=== PATIENT | female | born 1955 | race Caucasian/White ===

== ENCOUNTER 2020-01-19 10:46 | Emergency (ER) | payer SELFPAY ==
[~2020-01-19] VITALS: Ht 165.1 cm; Wt 71.2 kg
[2020-01-19] MEDS ORDERED: FLUT1DIS28 (11:21)
[2020-01-19 11:45] LABS: BASOPHILS % (AUTO) 0 % (0-10); EOSINOPHILS # (AUTO) 0.1 10^3/uL (0.0-0.3); EOSINOPHILS % (AUTO) 1 % (0-10); HEMATOCRIT 45 % (35-52); HEMOGLOBIN 15.4 G/DL (11.5-16.0); LYMPHOCYTES # (AUTO) 1.5 X 10^3 (1.0-4.0); LYMPHOCYTES % (AUTO) 18 % (12-44); MEAN CORPUSCULAR HEMOGLOBIN 30 PG (25-34); MEAN CORPUSCULAR HGB CONC 34 G/DL (32-36); MEAN CORPUSCULAR VOLUME 89 FL (80-99); MONOCYTES # (AUTO) 0.6 X 10^3 (0.0-1.0); MONOCYTES % (AUTO) 7 % (0-12); NEUTROPHILS # (AUTO) 6.1 X 10^3 (1.8-7.8); NEUTROPHILS % (AUTO) 74 % (42-75); PLATELET COUNT 277 10^3/uL (130-400); RED CELL DISTRIBUTION WIDTH 14.3 % (10.0-14.5); WHITE BLOOD COUNT 8.3 10^3/uL (4.3-11.0)
[2020-01-19 11:49] LABS: ALBUMIN 4.5 GM/DL (3.2-4.5); CHLORIDE 105 MMOL/L (98-107); POTASSIUM 3.8 MMOL/L (3.6-5.0); SODIUM 140 MMOL/L (135-145)
[2020-01-19 11:50] LABS: CALCIUM 9.5 MG/DL (8.5-10.1)
[2020-01-19 11:51] LABS: GLUCOSE 124 MG/DL (70-105); TOTAL PROTEIN 7.6 GM/DL (6.4-8.2)
[2020-01-19 11:52] LABS: CARBON DIOXIDE 23 MMOL/L (21-32)
[2020-01-19 11:53] LABS: BILIRUBIN,TOTAL 0.4 MG/DL (0.1-1.0)
[2020-01-19 11:55] LABS: ALKALINE PHOSPHATASE 60 U/L (40-136); CREATININE SERUM 1.01 MG/DL (0.60-1.30); GFR ESTIMATED 55
[2020-01-19 11:56] LABS: BUN/CREATININE RATIO 23
[2020-01-19 11:58] LABS: ALANINE AMINOTRANSFERASE 23 U/L (0-55)
--- NOTE | 2020-01-19 12:01 | ED General ---
General Chief Complaint: General Problems/Pain Stated Complaint: HIGH BP Nursing Triage Note: AMB TO ROOM REPORTS FOR PAST MONTH SHE HAS NOT FELT WELL. IN AM SHE GETS SHAKEY AND FEELING LIKE SHE CAN'T BREATH. TODAY SHE WAS AT WORK WHEN IN OCCURED WAS SENT TO [facility] IN [place] WHO SENT HER HERE. FOR DEVON. IS TO HAVE APPOINTENT WITH MICHAEL IN JANUARY. REPORTS FEELING BETTER ON ADMIT TO ED. DRANK COKE AND SYMPTOMS RESOLVED. Nursing Sepsis Screen: No Definite Risk Source of Information: Patient Exam Limitations: No Limitations History of Present Illness Date Seen by Provider: January 19, 2020 Time Seen by Provider: 11:15 Initial Comments 64-year-old female who presents to the emergency room with complaints of not feeling well for the past month. She has been seen and evaluated by her PCP for these issues. She states that she gets shaky and feels like she can't catch her breath. This has been going on for the past month but today at work her boss sent her to the [facility] clinic in [place] who then referred her to the emergency room for an evaluation. She has history of COPD and sees Dr. Carrasco for cardiology. She denies chest pain, nausea vomiting, dizziness. She did report that when the incident happened today she drank a Coke and resolved the majority of her symptoms. Timing/Duration: Other (1 month) Associated Systoms: Denies Symptoms Allergies and Home Medications Allergies Coded Allergies: codeine (Verified Allergy, Unknown, 01/19/20) Patient Home Medication List Home Medication List Reviewed: Yes Review of Systems Review of Systems Constitutional: see HPI; No chills, No fever Respiratory: see HPI, short of breath Musculoskeletal: see HPI, muscle twitching All Other Systems Reviewed Negative Unless Noted: Yes Past Oxlbcbs-Otfyca-Qgqirv Hx Past Med/Social Hx: Reviewed Nursing Past Med/Soc Hx Patient Social History Alcohol Use: Occasionally Uses Recreational Drug Use: No Smoking Status: Current Everyday Smoker Recent Foreign Travel: No Contact w/Someone Who Travel: No Recent Infectious Disease Expo: No Past Medical History Surgeries: Yes Section Respiratory: Yes COPD Cardiac: No Neurological: No Genitourinary: No Gastrointestinal: No Musculoskeletal: No Endocrine: No HEENT: No Cancer: No Psychosocial: No Family Medical History Reviewed Nursing Family Hx Physical Exam Vital Signs Vital Signs - First Documented 01/19/20 10:52 Temp 36.5 Pulse 93 Resp 18 B/P (MAP) 157/62 (93) Pulse Ox 98 Capillary Refill : Less Than 3 Seconds Height, Weight, BMI Height: '" Weight: lbs. oz. kg; 26.00 BMI Method: General Appearance: No Apparent Distress, WD/WN HEENT: PERRL/EOMI, TMs Normal, Normal ENT Inspection, Pharynx Normal Respiratory: Chest Non Tender, Lungs Clear, Normal Breath Sounds, No Accessory Muscle Use, No Respiratory Distress Cardiovascular: Regular Rate, Rhythm, No Edema, No Gallop, No JVD, No Murmur, Normal Peripheral Pulses Gastrointestinal: Normal Bowel Sounds, No Organomegaly, No Pulsatile Mass, Non Tender, Soft Extremity: Normal Capillary Refill, Normal Inspection, Normal Range of Motion, Non Tender, No Calf Tenderness, No Pedal Edema Neurologic/Psychiatric: Alert, Oriented x3, Normal Mood/Affect Skin: Normal Color, Warm/Dry Progress/Results/Core Measures Suspected Sepsis Recent Fever Within 48 Hours: No Infection Criteria Present: None New/Unexplained Altered Menta: No Sepsis Screen: No Definite Risk SIRS Temperature: Pulse: 93 Respiratory Rate: 18 Laboratory Tests 01/19/20 11:32: White Blood Count 8.3 Blood Pressure 157 /62 Mean: 93 Laboratory Tests 01/19/20 11:32: Creatinine 1.01, Platelet Count 277, Total Bilirubin 0.4 Results/Orders Lab Results Laboratory Tests Test 01/19/20 11:32 Range/Units White Blood Count 8.3 4.3-11.0 10^3/uL Red Blood Count 5.08 4.35-5.85 10^6/uL Hemoglobin 15.4 11.5-16.0 G/DL Hematocrit 45 35-52 % Mean Corpuscular Volume 89 80-99 FL Mean Corpuscular Hemoglobin 30 25-34 PG Mean Corpuscular Hemoglobin Concent 34 32-36 G/DL Red Cell Distribution Width 14.3 10.0-14.5 % Platelet Count 277 130-400 10^3/uL Mean Platelet Volume 10.0 7.4-10.4 FL Neutrophils (%) (Auto) 74 42-75 % Lymphocytes (%) (Auto) 18 12-44 % Monocytes (%) (Auto) 7 0-12 % Eosinophils (%) (Auto) 1 0-10 % Basophils (%) (Auto) 0 0-10 % Neutrophils # (Auto) 6.1 1.8-7.8 X 10^3 Lymphocytes # (Auto) 1.5 1.0-4.0 X 10^3 Monocytes # (Auto) 0.6 0.0-1.0 X 10^3 Eosinophils # (Auto) 0.1 0.0-0.3 10^3/uL Basophils # (Auto) 0.0 0.0-0.1 10^3/uL D-Dimer 0.85 H 0.00-0.49 UG/ML Sodium Level 140 135-145 MMOL/L Potassium Level 3.8 3.6-5.0 MMOL/L Chloride Level 105 98-107 MMOL/L Carbon Dioxide Level 23 21-32 MMOL/L Anion Gap 12 5-14 MMOL/L Blood Urea Nitrogen 23 H 7-18 MG/DL Creatinine 1.01 0.60-1.30 MG/DL Estimat Glomerular Filtration Rate 55 BUN/Creatinine Ratio 23 Glucose Level 124 H 70-105 MG/DL Calcium Level 9.5 8.5-10.1 MG/DL Corrected Calcium 9.1 8.5-10.1 MG/DL Total Bilirubin 0.4 0.1-1.0 MG/DL Aspartate Amino Transf (AST/SGOT) 22 5-34 U/L Alanine Aminotransferase (ALT/SGPT) 23 0-55 U/L Alkaline Phosphatase 60 40-136 U/L Troponin I < 0.028 <0.028 NG/ML B-Type Natriuretic Peptide < 10.0 <100.0 PG/ML Total Protein 7.6 6.4-8.2 GM/DL Albumin 4.5 3.2-4.5 GM/DL My Orders Orders - LASHAE STOLL Comprehensive Metabolic Panel (01/19/20 11:32) Ed Iv/Invasive Line Start (01/19/20 11:32) Cbc With Automated Diff (01/19/20 11:32) Chest 1 View, Ap/Pa Only (01/19/20 11:32) Ekg Tracing (01/19/20 11:32) O2 (01/19/20 11:32) Monitor-Rhythm Ecg Trace Only (01/19/20 11:32) Ed Iv/Invasive Line Start (01/19/20 11:32) Fibrin Degradation Products (01/19/20 11:32) BNP (01/19/20 11:32) Troponin I (01/19/20 11:32) Ct Angio Chest W (01/19/20 12:14) Iohexol Injection (Omnipaque 350 Mg/Ml 1 (01/19/20 12:45) Contrast Received (Contrast Received) (01/19/20 12:45) Medications Given in ED Current Medications Medications Dose Ordered Sig/Ascencion Route Start Time Stop Time Status Last Admin Dose Admin Iohexol 150 ml ONCE ONCE IV 01/19/20 12:45 01/19/20 12:46 DC 01/19/20 13:06 95 ML Vital Signs/I&O 01/19/20 10:52 Temp 36.5 Pulse 93 Resp 18 B/P (MAP) 157/62 (93) Pulse Ox 98 Capillary Refill : Less Than 3 Seconds Blood Pressure Mean: 93 Progress Note : Time: 13:57 Progress Note I have seen and evaluated the patient. I've informed her of her laboratory and imaging studies. She remains free of symptoms at this time. I have discussed the possibility of her blood sugar getting too low and that she needs to eat a well- balanced diet monitor blood sugars at home when feeling poorly. She is instructed to follow-up with her primary care provider. Return precautions were given. She agrees with plan of care and plans for discharge. ECG Initial ECG Impression Date: January 19, 2020 Initial ECG Impression Time: 11:39 Initial ECG Rate: 82 Initial ECG Rhythm: Normal Sinus Initial ECG Intervals: Normal Initial ECG Impression: Normal Initial ECG Comparisson: No Previous ECG Available Comment EKG shows right atrial enlargement. Departure Impression Primary Impression: Shakiness Disposition: 01 HOME, SELF-CARE Condition: Stable/Unchanged Departure-Patient Inst. Decision time for Depature: 13:23 Patient Instructions: General (DC) Add. Discharge Instructions: Follow-up with her primary care provider within 1 week for recheck. Call today to schedule an appointment time. Keep your appointment as scheduled with Dr. Calderon. Return back to the emergency room for worsening symptoms, chest pain, shortness of breath, or any other concerns as needed. Eat a well-balanced diet Drink plenty of fluids to stay hydrated. Check her blood sugar she used her having symptoms again. All discharge instructions reviewed with patient and/or family. Voiced understanding. LASHAE STOLL January 19, 2020 12:01
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
--- OUTSIDE RECORDS SUMMARY | 2020-01-19 12:03 | XMS REPORT ---
Author Author Tonie TEIXEIRA Organization [facility] Address [address] [place] [address] Care Team Providers Care Case Coordinator Name Role Phone JENNIFER TEIXEIRA Unavailable PROBLEMS Type Condition ICD9-CM Code JUP06-PE Code Onset Dates Condition S tatus SNOMED Code Problem Acute bronchitis, unspecified organism J20.9 Active 90750266 Problem Anxiety F41.9 Active 27140835 Problem Panlobular emphysema J43.1 Active 7066099 Problem Tobacco abuse counseling Z71.6 Activ e 312916916 Problem Tobacco abuse Z72.0 Active 304087 05 Problem Rhomboid muscle pain M79.1 Active 50460872 Problem Irritant contact dermatitis, unspecified trigger L 24.9 Active [id number] ALLERGIES No Information SOCIAL HISTORY Never Assessed PLAN OF CARE VITAL SIGNS MEDICATIONS Medication Instructions Dosage Frequency Start Date End Date Duration S tatus Plavix 75 mg Orally Once a day 1 tablet 24h Sep, 0 d ays Active RESULTS No Results PROCEDURES No Known procedures IMMUNIZATIONS No Known Immunizations MEDICAL (GENERAL) HISTORY Type Description Date Medical History stroke Medical History possible COPD- per chest x-ray Medical History PFT-Mild Obstructive Defect Medical History anxiety Surgical History section X2 Hospitalization History Surgery(s)/Childbirth(s) only
--- OUTSIDE RECORDS SUMMARY | 2020-01-19 12:03 | XMS REPORT ---
Author Author Tonie TEIXEIRA Organization [facility] Address [address] [place] [address] Care Team Providers Care Category Consultant Name Role Phone JENNIFER TEIXEIRA Unavailable PROBLEMS Type Condition ICD9-CM Code [id number] Code Onset Dates Condition S tatus SNOMED Code Assessment Tobacco abuse Z72.0 Jul, Active 11 2873290 Problem Panlobular emphysema J43.1 Active 9364144 Problem Rhomboid muscle pain M79.1 Active 41896857 Problem Tobacco abuse counseling Z71.6 Activ e 460692861 Problem Irritant contact dermatitis, unspecified trigger L 24.9 Active 099322155 Problem Acute bronchitis, unspecified organism J20.9 Active 28218868 Problem Tobacco abuse Z72.0 Active 267066 05 ALLERGIES Unknown Allergies SOCIAL HISTORY No smoking Hx information available PLAN OF CARE VITAL SIGNS MEDICATIONS Unknown Medications RESULTS No Results PROCEDURES Procedure Date Ordered Related Diagnosis Body Site PULMONARY FUNCTION TEST (IN-HOUSE) 2016-07-29 N/A NEB/MDI DEMO Jul 29, 2016 RESPIRATORY FLOW VOLUME LOOP Jul 29, 2016 SPIROMETRY Jul 29, 2016 SPRIOMETRY CHALLENGE Jul 29, 2016 IMMUNIZATIONS No Known Immunizations
--- OUTSIDE RECORDS SUMMARY | 2020-01-19 12:03 | XMS REPORT ---
Author Author Tonie TEIXEIRA [facility] [place] Address [address] [place] [address] Care Team Providers Care Belly Packer Name Role Phone JENNIFER TEIXEIRA Unavailable PROBLEMS Type Condition ICD9-CM Code DAP16-OG Code Onset Dates Condition S tatus SNOMED Code Problem Panlobular emphysema J43.1 Active 8710406 Problem Rhomboid muscle pain M79.1 Active 11783851 Problem Tobacco abuse counseling Z71.6 Activ e 420469529 Problem Irritant contact dermatitis, unspecified trigger L 24.9 Active 049451993 Problem Acute bronchitis, unspecified organism J20.9 Active 74191888 Problem Tobacco abuse Z72.0 Active 102049 05 ALLERGIES Unknown Allergies SOCIAL HISTORY No smoking Hx information available PLAN OF CARE VITAL SIGNS MEDICATIONS Unknown Medications RESULTS No Results PROCEDURES No Known procedures IMMUNIZATIONS No Known Immunizations
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
--- OUTSIDE RECORDS SUMMARY | 2020-01-19 12:03 | XMS REPORT ---
Author Author Tonie TEIXEIRA Organization [employer] Address Unknown Phone Unavailable Care Team Providers Care Plywood Stock Grader Name Role Phone JENNIFER TEIXEIRA CP Unavailable Allergies No Known Allergies Problems Problem Type Condition Code Onset Dates Condition Statu s Problem Rhomboid muscle pain M79.1 Active Problem Acute bronchitis, unspecified organism J20.9 Active Problem Panlobular emphysema J43.1 Active Problem Irritant contact dermatitis, unspecified trigger L24.9 Active Problem Tobacco abuse Z72.0 Active Problem Tobacco abuse counseling Z71.6 Act cynthia Medications Medication Code System Code Instructions Start Date End Date Status Dosage Ventolin HFA [facility] [address]-54 90 mcg/actuation Inhalation every 4 hrs Jul 08, 2013 2 puffs Results No Known Results Summary Purpose [employer] Submission
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
--- OUTSIDE RECORDS SUMMARY | 2020-01-19 12:03 | XMS REPORT ---
Author Author LLUVIA Tonieananth RODRIGUEZ Organization [facility] Address [address] [place] [address] Care Team Providers Care Steel Pickler Name Role Phone JENNIFER TEIXEIRA Unavailable PROBLEMS Type Condition ICD9-CM Code GCZ86-BF Code Onset Dates Condition S tatus SNOMED Code Problem Acute bronchitis, unspecified organism J20.9 Active 81369921 Problem Anxiety F41.9 Active 52245254 Problem Panlobular emphysema J43.1 Active 6907781 Problem Tobacco abuse counseling Z71.6 Activ e 282178055 Problem Tobacco abuse Z72.0 Active 537506 05 Problem Rhomboid muscle pain M79.1 Active 23621518 Problem Irritant contact dermatitis, unspecified trigger L 24.9 Active 802021825 ALLERGIES Substance Reaction Event Type Date Status Codeine Sulfate itching Drug Allergy Sep, Active SOCIAL HISTORY Never Assessed PLAN OF CARE Activity Details Follow Up 2 Months Reason:WW Exam VITAL SIGNS Height 65.5 in 2016-10-02 Weight 164.5 lbs 2016-10-02 Temperature 97.5 degrees Fahrenheit 2016-10-02 Heart Rate 92 bpm 2016-10-02 Respiratory Rate 16 2016-10-02 Oximetry 96 % 2016-10-02 BMI 26.95 kg/m2 2016-10-02 Blood pressure systolic 126 mmHg 2016-10-02 Blood pressure diastolic 76 mmHg 2016-10-02 MEDICATIONS Medication Instructions Dosage Frequency Start Date End Date Duration S tatus Benadryl 25 MG Orally every 6 hrs 1 capsule as needed 6h Active IBU-200 200 mg Orally every 6 hrs 3 tablet as needed 6h Active Ventolin HFA 90 mcg/actuation Inhalation 4 times a day as needed, no more than 6 times per day 2 puffs Jun, Active Meloxicam 7.5 MG Orally Once a day 1-2 tablets as needed for pain 2 4h May, Sep, 0 days Active Cyclobenzaprine HCl 10 mg Orally at bedtime 1 tablet at bedtime May, Active Advair Diskus 100-50 MCG/DOSE Inhalation Twice a day 1 puff- inse mouth after use 12h May, Active BusPIRone HCl 10 mg Orally Twice a day as needed for anxiety 1 tabl et Sep, 0 days Active Calcium & Magnesium Carbonates Active RESULTS No Results PROCEDURES Procedure Date Ordered Result Body Site MEASURE BLOOD OXYGEN LEVEL Oct 02, 2016 IMMUNIZATIONS No Known Immunizations MEDICAL (GENERAL) HISTORY Type Description Date Medical History stroke Medical History possible COPD- per chest x-ray Medical History PFT-Mild Obstructive Defect Medical History anxiety Surgical History section X2 Hospitalization History Surgery(s)/Childbirth(s) only
--- OUTSIDE RECORDS SUMMARY | 2020-01-19 12:03 | XMS REPORT ---
Author Author Tonie TEIXEIRA Organization [employer] Address Unknown Phone Unavailable Care Team Providers Care Safety Consultant Name Role Phone JENNIFER TEIXEIRA CP Unavailable [...] End Date Status Dosage Ventolin HFA [facility] [address]-47 90 mcg/actuation Inhalation 4 times a day as needed, no more than 6 times per day Jul 08, 2013 2 puffs Advair Diskus [facility] [address]-42 100-50 MCG/DOSE Inhalation Twice a day Jun 19, 2016 1 puff-inse mouth af ter use Results No Known Results Summary Purpose [employer] Submission
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
--- OUTSIDE RECORDS SUMMARY | 2020-01-19 12:03 | XMS REPORT ---
Author Author Tonie TEIXEIRA [facility] eClinicalWorks Address Unknown Phone Unavailable Care Team Providers Care Electroplating Technician Name Role Phone JENNIFER TEIXEIRA CP Unavailable Allergies, Adverse Reactions, Alerts Substance Reaction Event Type Codeine Sulfate itching Drug Allergy Problems Problem Type Condition Code Onset Dates Condition Statu s Assessment Tobacco abuse counseling Z71.6 Act cynthia Assessment Rhomboid muscle pain M79.1 Active Assessment Tobacco abuse Z72.0 Active Problem Rhomboid muscle pain M79.1 Active Problem Acute bronchitis, unspecified organism J20.9 Active Problem Panlobular emphysema J43.1 Active Problem Irritant contact dermatitis, unspecified trigger L24.9 Active Assessment Panlobular emphysema J43.1 Active Problem Tobacco abuse Z72.0 Active Problem Tobacco abuse counseling Z71.6 Act cynthia Medications Medication Code System Code Instructions Start Date End Date Status Dosage IBU-200 [facility] [address]-33 200 mg Orally every 6 hrs 3 tablet as needed Meloxicam [facility] [address]-15 7.5 MG Orally Once a day Jun 19, 2016 1-2 tablets as needed for pain Benadryl [facility] [address]-31 25 MG Orally every 6 hrs 1 capsule as needed Advair Diskus [facility] [address]-32 100-50 MCG/DOSE Inhalation Twice a day Jun 19, 2016 1 puff-inse mouth af ter use Cyclobenzaprine HCl [facility] [address]-46 5 mg Orally Three times a day as needed for pain Jun 19, 2016 1 tablet Ventolin HFA [facility] [address]-61 90 mcg/actuation Inhalation 4 times a day as needed, no more than 6 times per day Jul 08, 2013 2 puffs Procedures Procedure Coding System Code Date Office Visit, Est Pt., Level 4 CPT-[address] 2015 COMPLETE CBC W/AUTO DIFF WBC CPT-4 70320 Jun 19, 2016 MEASURE BLOOD OXYGEN LEVEL CPT-4 94491 May 252015 ASSAY THYROID STIM HORMONE CPT-4 09268 May 252015 COMPREHEN METABOLIC PANEL CPT-4 71376 May VENIPUNCT, ROUTINE* CPT-4 56037 Jun 19, 2016 ASSAY OF FREE THYROXINE CPT-4 25747 Jun 19, 2016 Vital Signs Date/Time: Jun 19, 2016 Cardiac Monitoring Heart Rate 91 bpm Weight 155.9 lbs Height 65.5 in BMI 25.55 Index Oximetry 97 % Blood Pressure Diastolic 78 mmHg Blood Pressure Systolic 118 mmHg Results Name Result Date Reference Range Unit Abnormali ty Flag CBC ----Lymphs 32 54080862 % ----Neutrophils 60 04582143 % ----Baso (Absolute) 0.0 [id number] 0.0-0.2 x10E3/uL ----Hemoglobin 13.6 94243957 11.1-15.9 g/dL ----Eos (Absolute) 0.1 12801293 0.0-0.4 x10E3/uL ----Hematocrit 41.4 54293610 34.0-46.6 % ----Monocytes(Absolute) 0.5 66537938 0.1-0.9 x10E3/uL ----MCV 87 90148217 79-97 fL ----Lymphs (Absolute) 2.2 99946825 0.7-3.1 x10E3/uL ----MCH 28.7 98147311 26.6-33.0 pg ----Neutrophils (Absolute) 4.0 87717805 1.4-7.0 x10E3/uL ----MCHC 32.9 94787552 31.5-35.7 g/dL ----Immature Granulocytes 0 70922143 % ----Basos 0 24419022 % ----RDW 14.1 10862497 12.3-15.4 % ----Immature Grans (Abs) 0.0 74511836 0.0-0.1 x10E3/uL ----WBC 6.8 69703754 3.4-10.8 x10E3/uL ----Platelets 314 09378856 150-379 x10E3/uL ----Eos 1 28696238 % ----RBC 4.74 60123101 3.77-5.28 x10E6/uL ----Monocytes 7 91999725 % ROUTINE VENIPUNCTURE TSH W/ FREE T4 ----T4,Free(Direct) 1.64 20160619 0.82-1.77 ng/dL ----TSH 1.450 [id number] 0.450-4.500 uIU/mL Summary Purpose eClinicalWorks Submission
--- OUTSIDE RECORDS SUMMARY | 2020-01-19 12:03 | XMS REPORT | Continuity of Care Document ---
Author Organization Unknown Address Unknown Phone Unavailable Allergies Active Description Code Type Severity Reaction Onset Reported/Identified Relationship to Patient Clinical Status Yes codeine Drug Allergy 08/01/2011 Yes codeine Drug Allergy N/A N/A 08/01/2011 Medications There is no data. Problems Date Dx Coded Attending Type Code Diagnosis Diagnosed By 08/01/2011 JENNIFER TEIXEIRA APRN L 30 5.1 NICOTINE DEPENDENCE 08/01/2011 JENNIFER TEIXEIRA APRN 491.21 CHRONIC BRONCHITIS - WITH ACUTE EXACERBATION 08/01/2011 JOSE FONSECA DO K 305.1 NICOTINE DEPENDENCE 08/01/2011 LINO FONSECA DOA K 491.21 CHRONIC BRONCHITIS - WITH ACUTE EXACERBATION 08/01/2011 DON DE LA CRUZ MD 305. 1 NICOTINE DEPENDENCE 08/01/2011 DON DE LA CRUZ MD 491. 21 CHRONIC BRONCHITIS - WITH ACUTE EXACERBATION 08/01/2011 LINO FONSECA DOA K 305.1 NICOTINE DEPENDENCE 08/01/2011 LINO FONSECA DOA K 491.21 CHRONIC BRONCHITIS - WITH ACUTE EXACERBATION 08/01/2011 JENNIFER TEIXEIRA APRN 30 5.1 NICOTINE DEPENDENCE 08/01/2011 JENNIFER TEIXEIRA APRN L 491.21 CHRONIC BRONCHITIS - WITH ACUTE EXACERBATION 03/23/2012 JENNIFER TEIXEIRA APRN 78 4.0 HEADACHE 03/23/2012 LINO FONSECA DOA K 784.0 headache 03/23/2012 DON DE LA CRUZ MD 784. 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 91 CEREBRAL ARTERY OCCLUSION UNSPECIFIED WITH CEREBRAL INFARCTION 04/07/2012 DON DE LA CRUZ MD 593. 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 21 WEIGHT LOSS 09/20/2012 JOSE FONSECA DO K 496 COPD 09/20/2012 JOSE FONSECA DO K 783.21 WEIGHT LOSS 09/20/2012 JENNIFER TEIXEIRA APRN 49 6 COPD 09/20/2012 JENNIFER TEIXEIRA APRN L 783.21 WEIGHT LOSS 05/17/2013 JOSE FONSECA DO K 780.99 loss of pleasure from usual activities (anhedonia) 05/17/2013 DON DE LA CRUZ MD 780. 99 loss of pleasure from usual activities (anhedonia) 05/17/2013 JOSE FONSECA DO 780.99 loss of pleasure from usual activities (anhedonia) 05/17/2013 JENNIFER TEIXEIRA APRN 780.99 loss of pleasure from usual activities (anhedonia) Procedures Code Description [place] [address] OXIMETRY 08/30/2013 30371 ROUT INE VENIPUNCTURE 12/28/2013 57107 CBC 12/28/2013 [id number] GF R CALC (RESULT ONLY) 12/28/2013 22322 CMP 12/28/2013 94905 LIPI D PANEL 12/28/2013 82560 A1C (RML) 12/28/2013 78479 TSH 12/28/2013 Results Test Result Range CBC - 06/09/18 08:29 WHITE BLOOD CELL COUNT 6.0 Thousand/uL 3 .8-10.8 RED BLOOD CELL COUNT 4.71 Million/uL 3.8 0-5.10 HEMOGLOBIN 14.3 g/dL 11.7-15.5 HEMATOCRIT 41.7 % 35.0-45.0 MCV 88.5 fL 80.0-100.0 MCH 30.4 pg 27.0-33.0 MCHC 34.3 g/dL 32.0-36.0 RDW 13.2 % 11.0-15.0 PLATELET COUNT 287 Thousand/uL 140-400 MPV 10.2 fL 7.5-12.5 ABSOLUTE NEUTROPHILS 3252 cells/uL 1500- 7800 ABSOLUTE LYMPHOCYTES 2064 cells/uL 850-3 900 ABSOLUTE MONOCYTES 534 cells/uL 200-950 ABSOLUTE EOSINOPHILS 132 cells/uL 15-500 ABSOLUTE BASOPHILS 18 cells/uL 0-200 NEUTROPHILS 54.2 % NRG LYMPHOCYTES 34.4 % NRG MONOCYTES 8.9 % NRG EOSINOPHILS 2.2 % NRG BASOPHILS 0.3 % NRG CRP - 07/07/19 16:54 C-REACTIVE PROTEIN 2.9 mg/L <8.0 EXTRA BLOOD SPECIMEN - 01/04/20 16:28 EXTRA TUBE RECEIVED NRG SPECIMEN TYPE RECEIVED: SST NRG Encounters ACCT No. Visit Date/Time Discharge Status Pt. Type Provider Facility Loc./Unit Complaint [id number] 01/04/2020 15:40:00 01/04/2020 23:59: 59 CLS Outpatient JENNIFER TEIXEIRA [facility]N [facility] [id number] 01/04/2020 16:28:00 Document Registration [id number] 01/04/2020 15:40:00 Document Registration [id number] 07/07/2019 15:40:00 Document Registration [id number] 06/09/2018 08:30:00 Document Registration [id number] 12/28/2013 08:04:00 12/28/2013 23:59: 59 CLS Outpatient JENNIFER TEIXEIRA APRN [id number] 08/30/2013 08:32:00 08/30/2013 23:59: 59 CLS Outpatient JOSE FONSECA DO [id number] 06/30/2013 14:39:00 06/30/2013 23:59: 59 CLS Outpatient DON DE LA CRUZ MD [id number] 05/17/2013 15:45:00 05/17/2013 23:59: 59 CLS Outpatient JOSE FONSECA DO [id number] 09/20/2012 14:49:00 09/20/2012 23:59: 59 [facility] Outpatient JENNIFER TEIXEIRA APRN
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
--- OUTSIDE RECORDS SUMMARY | 2020-01-19 12:03 | XMS REPORT ---
Author Author Tonie TEIXEIRA Organization e[employer] Address Unknown Phone Unavailable Care Team Providers Care Assistant Corporate Secretary Name Role Phone JENNIFER TEIXEIRA CP Unavailable Allergies No Known Allergies Problems Problem Type Condition Code Onset Dates Condition Statu s Problem Rhomboid muscle pain M79.1 Active Problem Acute bronchitis, unspecified organism J20.9 Active Problem Panlobular emphysema J43.1 Active Problem Irritant contact dermatitis, unspecified trigger L24.9 Active Problem Tobacco abuse Z72.0 Active Problem Tobacco abuse counseling Z71.6 Act cynthia Medications No Known Medications Results No Known Results Summary Purpose eClinicalWorks Submission
--- NOTE | 2020-01-19 12:20 | Diagnostic Imaging Report ---
INDICATION: Hypertension. TIME OF EXAM: 11:56 AM No prior studies are available for comparison. The heart size is normal. The lungs are clear. No infiltrates are seen. There is no effusion or pneumothorax. There is mild right convexity lower thoracic scoliotic curvature. IMPRESSION: No acute cardiopulmonary process is detected. Dictated by: Dictated on workstation # [id number]
[2020-01-19] MEDS ORDERED: IOHEXOL 350 MG/ML 150 ML (OMNIPAQUE 350) VIAL IV ONE (12:45)
[2020-01-19] MEDS ORDERED: HOLD METFORMIN - RECEIVED CONTRAST 20 ML VIAL IV SCH (12:45)
--- NOTE | 2020-01-19 13:16 | Diagnostic Imaging Report ---
PROCEDURE: CT angiography of the chest with contrast. TECHNIQUE: Multiple contiguous axial images were obtained through the chest after uneventful bolus administration of intravenous contrast. 3D reconstructed CTA MIP acquisitions were also performed. Auto Exposure Controls were utilized during the CT exam to meet ALARA standards for radiation dose reduction. INDICATION: Hypertension. Shortness of breath. Concern for pulmonary embolism. COMPARISON: Chest radiograph performed earlier the same day. FINDINGS: This helical CT pulmonary angiogram is diagnostic to the subsegmental level branches of the pulmonary artery and demonstrates no pulmonary emboli. The heart and great vessels are unremarkable. There is no pericardial effusion. The thoracic aorta has an unremarkable appearance without evidence of dissection or aneurysm. No evidence of mediastinal hematoma. There is no axillary, mediastinal, or hilar adenopathy. Centrilobular emphysema is seen throughout the lungs, greatest in the apices. A small amount of apical scarring is noted. No focal consolidation or suspicious pulmonary nodules. No central endobronchial obstructing lesions. No evidence of pleural effusion or pneumothorax. Osseous structures appear normal. Limited views of the upper abdomen are unremarkable. IMPRESSION: 1. No acute pulmonary embolus. 2. Centrilobular emphysema. No focal consolidation or pulmonary mass. No suspicious pulmonary nodules. Dictated by: Dictated on workstation # [id number]
[2020-01-19 14:02] VITALS: BP 141/75
== END 2020-01-19 14:01 | disposition home or self-care (01) ==
LOC: EDUNIT# 10:46 → ER 10:48
DX: R25.1 Tremor, unspecified (principal); F17.200 Nicotine dependence, unspecified, uncomplicated; Z88.5 Allergy status to narcotic agent
CPT/HCPCS: 36415; 71045; 71275; 80053; 83880; 84484; 85025; 85379; 93005; 93041

== ENCOUNTER → 2020-02-14 | Outpatient (CLI) | payer SELFPAY ==
[~2020-02-14] VITALS: Ht 165 cm; Wt 73.0 kg
[~2020-02-14] MED LIST: CATHETER FLUSH 10 ML SYR IV PRN; FLUT1DIS28; REGADENOSON 0.4 MG/5 ML SYR (LEXISCAN) IV ONE
[2020-02-14 09:20] VITALS: BP 173/97
--- NOTE | 2020-02-14 15:48 | STRESS TEST ---
DATE OF SERVICE: 02/14/2020 RESTING AND POST REGADENOSON TECHNETIUM-99M TETROFOSMIN SPECT CT IMAGING ORDERING PHYSICIAN: Dr. Carrasco. PRIMARY PHYSICIAN: [facility]. OTHER PHYSICIAN: ZARIA Lizama CLINICAL DIAGNOSES: Shortness of breath, hypertension, tobacco use. Baseline images were carried out after injection of 10.14 mCi of technetium-99m Tetrofosmin. This was followed by 0.4 mg regadenoson and 31.3 mCi of technetium-99m Tetrofosmin for stress imaging. The electrocardiogram showed sinus rhythm at baseline. It did not change significantly with regadenoson infusion. Review of images at rest and following stress does not indicate any significant perfusion defects consistent with significant myocardial ischemia or infarction. Gated images show normal global left ventricular systolic function with normal regional wall motion. Left ventricular ejection fraction is calculated to be 73%. Left ventricular end diastolic volume is 51 mL. TID is absent (1.08). CONCLUSIONS: 1. No evidence of any significant myocardial ischemia or infarction on this study. 2. Normal regional wall motion. 3. Normal global left ventricular systolic function with a calculated ejection fraction of 73%. Job ID: [id number] DocumentID: [id number] Dictated Date: 02/14/2020 15:27:09 [employer] Supervisor Date: 02/14/2020 15:47:47 Dictated By: AWAIS CARRASCO MD, MA, FACP, FACC,
== END ==
LOC: CARD 07:43
PROVIDERS: ATTEND Internal Medicine Cardiovascular Disease
DX: I10 Essential (primary) hypertension (principal); R06.02 Shortness of breath; Z72.0 Tobacco use
CPT/HCPCS: 78452; 93017; A9502

== ENCOUNTER → 2020-03-08 | Outpatient (CLI) | payer SELFPAY ==
[~2020-03-08] MED LIST changes: -CATHETER FLUSH 10 ML SYR IV PRN; -REGADENOSON 0.4 MG/5 ML SYR (LEXISCAN) IV ONE
== END ==
LOC: CARD 11:18
PROVIDERS: ATTEND Internal Medicine Cardiovascular Disease
DX: I10 Essential (primary) hypertension (principal); Z72.0 Tobacco use
CPT/HCPCS: 93225; 93226; 93306